=== PATIENT | female | born 1990 | race African-American/Black ===

== ENCOUNTER 2018-05-11 08:59 | Emergency (ER) | payer BC ==
[~2018-05-11] VITALS: Ht 170.2 cm; Wt 52.2 kg
[~2018-05-11 08:59] MED LIST: FLAGYL500 MG PO; PEPCID20 MG PO; PREDNISONE 20 M20 M1 PO; VISTARIL 25 MG25 M1 PO
== END 2018-05-11 11:33 | disposition home or self-care (01) ==
LOC: ER 08:59
DX: L98.9 Disorder of the skin and subcutaneous tissue, unspecified (principal)